=== PATIENT | female | born 1985 | race Caucasian/White ===

== ENCOUNTER 2018-11-03 09:51 | Emergency (ER) | payer BC ==
[~2018-11-03] VITALS: Ht 154.9 cm; Wt 68.2 kg
[~2018-11-03 09:51] MED LIST changes: -BIRTH CONTROL PO
[2018-11-04] MEDS ORDERED: BIRTH CONTROL PO (01:17)
== END 2018-11-03 10:32 | disposition home or self-care (01) ==
LOC: COL.ER 09:51
DX: T76.21XA Adult sexual abuse, suspected, initial encounter (principal)

== ENCOUNTER → 2018-11-03 | Outpatient (CLI) | payer BC ==
[~2018-11-03] MED LIST: BIRTH CONTROL PO; NO HOME MEDICATIONS
== END ==
LOC: LDRO 18:24
DX: T74.21XA Adult sexual abuse, confirmed, initial encounter (principal)
CPT/HCPCS: J0696

== ENCOUNTER → 2018-11-03 | Outpatient (REF) | LOC: LDRO 18:25 | DX: T74.21XA Adult sexual abuse, confirmed, initial encounter (principal) ==